=== PATIENT | female | born 1955 | race Caucasian/White ===

== ENCOUNTER → 2018-04-21 | Day surgery (SDC) | payer OTHER ==
[~2018-04-21] VITALS: Ht 160 cm; Wt 49.0 kg
[~2018-04-21] MED LIST: AUGMENTIN 500-1 EACH PO; OXYCODONE HCL5 M1 PO
--- NOTE | 2018-04-21 09:29 | Operative Report ---
Operative/Inv Procedure Report Surgery Date: 04/21/18 Name of Procedure: 1. House flap anoplasty 2. Lateral internal sphincterotomy Pre-Operative Diagnosis: 1. Benign anal stricture 2. Chronic anal fissure Post-Operative Diagnosis: Same Estimated Blood Loss: scant Surgeon/Assembler Dc Field Yoke: Ignacio Apple Jr., DO Anesthesia: general endotracheal tube, block Monitors: Per routine Drains: None Specimens: Anal canal tissue with chronic anal fissure Complications: None Condition: Good Operative Indication: This is a 62-year-old female who over a year ago had a 3 column hemorrhoidectomy performed by another surgeon. She had unusually prolonged healing and came to me for second opinion after she had not healed for 3 months. It appeared that she had a nonhealing anal fissure at one of her excision/suture lines. We treated her with aggressive medical therapy including: Fiber supple sitz bath and topical calcium channel blockers. She completely failed to heal and at this point I recommended a lateral internal sphincterotomy. Patient was reluctant to do this because of her fear of fecal incontinence. At one point we took her back to the operating room just to debride and cauterized fissure and biopsies were taken. Biopsies did not reveal any pathology to explain her inability to heal. She continued to have a chronic wound. Patient ultimately agreed to Botox denervation of the anal sphincter. At the time of the Botox injection she now had developed near critical stricturing so I was pessimistic about the results of this procedure. As I predicted she continued to have a nonhealing wound. 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 So at this point she finally consented to sphincterotomy with the addition of anoplasty. Operative/Procedure Note Note: On the morning of her surgery prior to coming to the hospital she did 2 fleets enemas. She was taken into the operating room placed on a stretcher adjacent to the operating room bed. She underwent induction of general anesthesia placement of endotracheal tube and we then converted her to prone jackknife position. During positioning we took great care to protect her airway spine and pad her bony prominences. Next of the gluteal cleft was taped in the abducted position and the perineum was prepped and draped in usual fashion. An anal block was then performed with 0.5% Marcaine and epinephrine a total of 30 cc was injected. The nonhealing fissure and abnormal scar tissue involved the right keara- circumference of the anal canal. Gentle finger dilatation was performed. A small Hill-Bright anal retractor was placed. I excised a small postage stamp sized area of scar tissue including the anal fissure. The scar tissue was carefully dissected off the internal anal sphincter but was abnormally adherent to the internal anal. After completely excising this tissue I copiously irrigated the field and achieved hemostasis. The dimensions of the surgically created wounds were measured: A 2 cm x 1.5 cm defect was present. I marked out my house flap in the anal margin skin. The wall of the house flap was 2 cm. I then mobilized the flap making sure to protect the blood supply. Once the flap was completely mobile it was tacked into the anal canal with interrupted 2-0 Vicryl suture. 4-0 Vicryl sutures were used in between to close the incision. The external incisions were closed partly with 2-0 Vicryl in a mattress fashion and partly with running 3-0 Vicryl suture. The roof of the house flap was closed in a VY fashion. At this point I copiously irrigated the field 1 last time and inspected for hemostasis which was complete. The flap appeared pink and healthy and the same coloration of the surrounding skin with no evidence of ischemia. Next the surgical field was coated with bacitracin and a dry bulky dressing was applied. Patient was converted to supine and extubated in the operating room. She tolerated the procedure well and was taken to the recovery area in good condition. At the end of this operation and all needle sponges and instruments were accounted for. Patient and her sister were given very specific postop instruction Findings: Chronic anal fissure of the right posterior anal canal with abnormal scar tissue Discharge Disposition: PACU Additional Comments: Tissue sent for routine path CC: Kayla FUNK,Ashish Whitehead
== END ==
LOC: STS 01:56
DX: K62.4 Stenosis of anus and rectum (principal); K60.1 Chronic anal fissure; D56.9 Thalassemia, unspecified; E53.8 Deficiency of other specified B group vitamins
CPT/HCPCS: J0131; J0690; J2250; J3490